=== PATIENT | male | born 1960 | race Caucasian/White ===

== ENCOUNTER 2022-04-19 07:18 | Inpatient (IN) | payer OTHER ==
[~2022-04-19] VITALS: Ht 182.9 cm; Wt 112.4 kg
[2022-04-19] MEDS ORDERED: IOHEXOL 350 MG/ML 100ML IJ ONE (07:39)
[2022-04-19] MEDS ORDERED: SODIUM CHLORIDE 0.9% 500 ML IVB ONE (07:45)
[2022-04-19] MEDS ORDERED: dilTIAZem 25 MG/5 ML VIAL IV ONE (07:45)
[2022-04-19 08:45] LABS: Basophils # (auto) 0.2 10 ^3/uL (0-0.2); Basophils % (auto) 0.9 % (0.0-2.0); Eosinophils # (auto) 0.2 10 ^3/uL (0-0.8); Hematocrit 41.6 % (41.0-53.0); Hemoglobin 13.3 g/dL (13.5-17.5); Lymphocytes # (auto) 1.4 10 ^3/uL (0.4-5.4); Lymphocytes % (auto) 8.3 % (10.0-50.0); Mean Corpuscular Hemoglobin 27.4 pg (28.0-32.0); Mean Corpuscular Hgb Conc. 31.8 g/dL (32.0-36.0); Monocytes # (auto) 1.2 10 ^3/uL (0-1.3); Monocytes % (auto) 7.1 % (0.0-12.0); Neutrophils # (auto) 13.8 10 ^3/uL (1.6-8.6); Neutrophils % (auto) 82.7 % (37.0-80.0); Red Blood Cells 4.84 10^6/uL (4.5-5.90); Red Cell Distribution Width 15.5 % (11.8-14.3); White Blood Cell 16.7 10^3/uL (4.4-10.8)
[2022-04-19 09:01] LABS: INR 1.1 (0.9-1.15); Partial Thromboplastin Time 24.5 sec (23.6-33.0)
[2022-04-19 09:07] LABS: Albumin 3.1 g/dL (3.4-5.0); Calcium 7.9 mg/dL (8.5-10.1); Potassium 3.7 mmol/L (3.5-5.1)
[2022-04-19 09:10] LABS: Bilirubin, Total 0.5 mg/dL (0.2-1.0); Total Protein 7.2 g/dL (6.4-8.2)
[2022-04-19] MEDS ORDERED: dilTIAZem HCL 50 MG/10 ML VIAL IV ONE (09:37)
[2022-04-19 12:58] LABS: Urine Bacteria FEW /hpf (None Seen); Urine Blood 3+ /uL (Negative); Urine Mucus FEW (None Seen); Urine WBC 7 /hpf (0 - 3)
[2022-04-19 12:59] LABS: Urine Specific Gravity 1.023 (1.001-1.035)
[2022-04-19 13:03] LABS: Alcohol, Urine < 3.0 mg/dL (0-10); Amphetamine Screen, Urine POSITIVE (NEGATIVE); Barbiturate Scree,Urine NEGATIVE (NEGATIVE); Benzodiazephine Screen, Urine NEGATIVE (NEGATIVE); Cannabinoid Screen, Urine NEGATIVE (NEGATIVE); Cocaine Screen, Urine NEGATIVE (NEGATIVE); Opiate Scree,Urine NEGATIVE (NEGATIVE); Phencyclidine Screen, Urine NEGATIVE (NEGATIVE)
[2022-04-19] MEDS ORDERED: MORPHINE SULFATE 4 MG/ML SYR/VIAL IV ONE (13:45)
[2022-04-19] MEDS ORDERED: ONDANSETRON HCL 4 MG/2 ML VIAL IV ONE (13:45)
[2022-04-19] MEDS ORDERED: PIPERACILLIN-TAZOB 3.375GM 100 ML IV ONE (14:15)
[2022-04-19] MEDS ORDERED: metroNIDAZOLE 500MG/100ML 100 ML IV ONE (14:15)
[2022-04-19] MEDS: SODIUM CHLORIDE 0.9% 1,000 ML IV SCH (17:30)
[2022-04-19] MEDS: dilTIAZem 125mg/125ml BAG KIT 125 ML IV SCH (17:30)
[2022-04-19] MEDS: metroNIDAZOLE 500MG/100ML 100 ML IV SCH ×2 (21:03→22:16)
[2022-04-20] MEDS ORDERED: LORazepam 2MG/ML-1ML VIAL IV ONE (03:30)
[2022-04-20 05:58] LABS: Basophils # (auto) 0.1 10 ^3/uL (0-0.2); Basophils % (auto) 0.8 % (0.0-2.0); Eosinophils # (auto) 0.2 10 ^3/uL (0-0.8); Eosinophils % (auto) 2.4 % (0.0-7.0); Hemoglobin 13.1 g/dL (13.5-17.5); Lymphocytes # (auto) 1.9 10 ^3/uL (0.4-5.4); Lymphocytes % (auto) 19.4 % (10.0-50.0); Mean Corpuscular Hemoglobin 27.8 pg (28.0-32.0); Mean Corpuscular Hgb Conc. 32.1 g/dL (32.0-36.0); Mean Corpuscular Volume 86.7 fL (80.0-100.0); Neutrophils # (auto) 6.7 10 ^3/uL (1.6-8.6); Neutrophils % (auto) 67.4 % (37.0-80.0); Red Blood Cells 4.73 10^6/uL (4.5-5.90); Red Cell Distribution Width 15.5 % (11.8-14.3); White Blood Cell 9.9 10^3/uL (4.4-10.8)
[2022-04-20 06:19] LABS: Potassium 4.1 mmol/L (3.5-5.1)
[2022-04-20 06:28] LABS: BUN/Creatinine Ratio 17.5; Bilirubin, Total 0.6 mg/dL (0.2-1.0); Calcium 7.8 mg/dL (8.5-10.1); Total Protein 6.8 g/dL (6.4-8.2)
[2022-04-20] MEDS: SODIUM CHLORIDE 0.9% 1,000 ML IV SCH (07:58)
[2022-04-20] MEDS: PANTOPRAZOLE 40 MG/10 ML VIAL INJ IV SCH (10:13)
[2022-04-20] MEDS: metroNIDAZOLE 500MG/100ML 100 ML IV SCH ×2 (16:00→22:05)
[2022-04-20] MEDS: MORPHINE SULFATE INJ 2 MG/ml SYRG IV PRN ×3 (16:58→22:22)
[2022-04-20] MEDS: dilTIAZem 125mg/125ml BAG KIT 125 ML IV SCH (17:30)
[2022-04-20] MEDS ORDERED: SODIUM CHLORIDE 0.9% 1,000 ML IV ONE ×2 (22:30)
[2022-04-21] MEDS: SODIUM CHLORIDE 0.9% 1,000 ML IV SCH ×3 (00:35→20:05)
[2022-04-21] MEDS: PIPERACILLIN-TAZOB 3.375GM 100 ML IV SCH ×4 (00:48→17:17)
[2022-04-21] MEDS ORDERED: LORazepam 2MG/ML-1ML VIAL IV ONE (01:00)
[2022-04-21] MEDS: MORPHINE SULFATE INJ 2 MG/ml SYRG IV PRN ×3 (02:58→23:00)
[2022-04-21] MEDS: dilTIAZem 125mg/125ml BAG KIT 125 ML IV SCH (05:23)
[2022-04-21] MEDS: metroNIDAZOLE 500MG/100ML 100 ML IV SCH ×3 (05:52→22:58)
[2022-04-21 07:11] LABS: Basophils # (auto) 0.1 10 ^3/uL (0-0.2); Basophils % (auto) 0.9 % (0.0-2.0); Eosinophils # (auto) 0.2 10 ^3/uL (0-0.8); Eosinophils % (auto) 1.8 % (0.0-7.0); Hematocrit 37.5 % (41.0-53.0); Hemoglobin 12.2 g/dL (13.5-17.5); Lymphocytes # (auto) 1.4 10 ^3/uL (0.4-5.4); Lymphocytes % (auto) 14.5 % (10.0-50.0); Mean Corpuscular Hemoglobin 28.4 pg (28.0-32.0); Mean Corpuscular Hgb Conc. 32.5 g/dL (32.0-36.0); Mean Corpuscular Volume 87.5 fL (80.0-100.0); Monocytes # (auto) 0.7 10 ^3/uL (0-1.3); Monocytes % (auto) 7.5 % (0.0-12.0); Neutrophils # (auto) 7.4 10 ^3/uL (1.6-8.6); Neutrophils % (auto) 75.3 % (37.0-80.0); Red Blood Cells 4.29 10^6/uL (4.5-5.90); Red Cell Distribution Width 15.2 % (11.8-14.3); White Blood Cell 9.9 10^3/uL (4.4-10.8)
[2022-04-21 07:26] LABS: Calcium 7.7 mg/dL (8.5-10.1); Potassium 3.7 mmol/L (3.5-5.1)
[2022-04-21] MEDS: PANTOPRAZOLE 40 MG/10 ML VIAL INJ IV SCH (09:24)
[2022-04-21] MEDS ORDERED: IOHEXOL 350 MG/ML 100ML IJ ONE (12:06)
[2022-04-21] MEDS ORDERED: METOPROLOL TARTRATE 25 MG TAB PO ONE (12:30)
[2022-04-21] MEDS ORDERED: ENOXAPARIN SOD 100 MG/1 ML SYRINGE SC ONE (12:30)
[2022-04-21 16:23] VITALS: BP 98/72
[2022-04-21] MEDS: LORazepam 2MG/ML-1ML VIAL IV PRN (20:05)
[2022-04-21] MEDS: ENOXAPARIN SOD 100 MG/1 ML SYRINGE SC SCH (21:57)
[2022-04-21] MEDS: METOPROLOL TARTRATE 25 MG TAB PO SCH (21:57)
[2022-04-21 22:37] VITALS: BP 118/68
[2022-04-22] MEDS ORDERED: MELATONIN 5 MG TAB PO ONE (00:15)
[2022-04-22] MEDS: PIPERACILLIN-TAZOB 3.375GM 100 ML IV SCH ×3 (01:59→11:34)
[2022-04-22] MEDS: LORazepam 2MG/ML-1ML VIAL IV PRN ×2 (02:00→11:32)
[2022-04-22] MEDS: SODIUM CHLORIDE 0.9% 1,000 ML IV SCH ×2 (03:30→11:30)
[2022-04-22 05:00] VITALS: BP 107/80
[2022-04-22] MEDS: metroNIDAZOLE 500MG/100ML 100 ML IV SCH ×2 (05:17→14:40)
[2022-04-22] MEDS: MORPHINE SULFATE INJ 2 MG/ml SYRG IV PRN (05:18)
[2022-04-22 07:01] LABS: Potassium 3.9 mmol/L (3.5-5.1)
[2022-04-22 07:07] LABS: BUN/Creatinine Ratio 14.1; Calcium 8.2 mg/dL (8.5-10.1); Hematocrit 40.1 % (41.0-53.0); Hemoglobin 13.1 g/dL (13.5-17.5); Mean Corpuscular Hemoglobin 28.5 pg (28.0-32.0); Mean Corpuscular Hgb Conc. 32.6 g/dL (32.0-36.0); Mean Corpuscular Volume 87.5 fL (80.0-100.0); Red Blood Cells 4.58 10^6/uL (4.5-5.90); Red Cell Distribution Width 15.3 % (11.8-14.3); White Blood Cell 10.8 10^3/uL (4.4-10.8)
[2022-04-22 07:16] LABS: Basophils % (manual) 0 (0.0-2.0); Blast Cells 0; Myelocytes % 0; Promyelocytes % 0; Reactive Lymphocytes 0
[2022-04-22 07:49] LABS: Band Neutrophils % (manual) 1; Eosinophils % (manual) 2 (0-7); Lymphocytes % (manual) 15 (10.0-50.0); Metamyelocytes % 1; Monocytes % (manual) 12 (0-12)
[2022-04-22 08:05] VITALS: BP 124/73
[2022-04-22 08:15] VITALS: BP 124/73
[2022-04-22] MEDS: PANTOPRAZOLE 40 MG/10 ML VIAL INJ IV SCH (11:29)
[2022-04-22] MEDS: ENOXAPARIN SOD 100 MG/1 ML SYRINGE SC SCH (11:32)
[2022-04-22] MEDS: METOPROLOL TARTRATE 25 MG TAB PO SCH (11:32)
[2022-04-22 12:40] VITALS: BP 106/64
[2022-04-22 16:25] VITALS: BP 125/95
[2022-04-22] MEDS ORDERED: ALBUTEROL SULF 2.5 MG/0.5ML(0.5%) NEB SOLN NEB PRN (17:30)
== END 2022-04-22 18:00 | disposition left against medical advice (07) | DRG 308 ==
LOC: ER 07:18 → EDBD 07:18 → OVERFLOW 15:09 → WEST WING 04-21 16:40 → TELE-WESTW 04-22 02:02
PROVIDERS: ADMIT Internal Medicine; ATTEND Internal Medicine Pulmonary Disease
DX: I48.91 Unspecified atrial fibrillation (principal); J18.9 Pneumonia, unspecified organism; J96.01 Acute respiratory failure with hypoxia; N39.0 Urinary tract infection, site not specified; F15.10 Other stimulant abuse, uncomplicated; K52.9 Noninfective gastroenteritis and colitis, unspecified; E11.65 Type 2 diabetes mellitus with hyperglycemia; E66.9 Obesity, unspecified; F17.210 Nicotine dependence, cigarettes, uncomplicated; Z20.822 Contact with and (suspected) exposure to COVID-19; Z53.29 Procedure and treatment not carried out because of patient's decision for other reasons; Z68.33 Body mass index [BMI] 33.0-33.9, adult; Z91.19 Patient's noncompliance with other medical treatment and regimen; R10.32 Left lower quadrant pain; D72.829 Elevated white blood cell count, unspecified
CPT/HCPCS: 36415; 36600; 70450; 71045; 71275; 74177; 80048; 80053; 80307; 80320; 81001; 82150; 82805; 83036; 83690; 83735; 83880; 84443; 84484; 85007; 85025; 85027; 85610; 85730; 87040; 87077; 87086; 87186; 93005; 93306; 93886; 93970; 96361; 96374; 96375; C9113; G0378; J2405; J2543; J3490